=== PATIENT | female | born 2000 | race Caucasian/White ===

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

== ENCOUNTER 2020-01-04 14:52 | Emergency (ER) | payer OTHER, SELFPAY ==
[2020-01-04 14:53] VITALS: BP 128/86; PULSE 140; RESP 16; TEMP 36.7; O2SAT 98; BMI 23.6
--- NOTE | 2020-01-04 15:11 | ED.DCSUM_ITS ---
- ER Visit Summary Date of Service: 01/04/20 Chief Complaint: [Sore throat] History of Present Illness: The patient is a 19 F [presents to the emergency department with a sore throat that is worsened over the last 3 days. Patient had an illness that started about 3 weeks ago but then felt like she got better. Patient was tested for COVID-19 twice because 1 of her roommates tested positive. Patient was negative x2. Patient was seen at urgent care 3 days ago and had a positive mono test. Patient was negative for strep. She has been having decreased appetite and decreased p.o. intake because of the pain in her throat. She had a fever last night up to 101. She denies abdominal pain. She denies any cough. She denies loss of taste or smell. Patient has no medical history.] Physical Examination: [HEENT-PERRLA, EOMI. Cranial nerves II through XII grossly intact. TMs clear. Mucous membranes moist. Pharynx-patient has enlarged tonsils at +3. Patient has exudates bilaterally. No trismus on exam. Patient has posterior lymphadenopathy. Cardiovascular-regular rate and tachycardic. No murmurs auscultated. Lungs-clear to auscultation, chest wall stable without crepitus or subcu emphysema Abdomen-normoactive bowel sounds, soft, nontender, no rebound or rigidity, no peritoneal signs. No splenomegaly or hepatomegaly noted on exam. Extremities-intact ?4, normal range of motion, normal pulses, atraumatic] Test Results: [CBC with differential obtained showed a white count 12.6, hemoglobin 13, hematocrit 38, placed to 74. Chemistries unremarkable. Liver enzymes were elevated with a total bilirubin of 2.0, ALT 192 and AST of 91. Chest x-ray showed nothing acute.] Emergency Department Course and Treatment: [Line established. Patient was given 2 L normal saline fluid boluses. Patient was given Toradol 30 mg IV as well as Decadron 10 mg IV. Patient felt significantly improved after treatment.] Treatment Plan: [This point I suspect patient has mononucleosis clinically and via lab confirmation. I recommended avoiding any contact sports. I suspect the liver enzymes are elevated due to the mononucleosis. Patient will be given a prescription for few [place] for pain. She has viscous lidocaine at home as well for pain.] Disposition: [Discharged home in stable condition] Impression: [Mononucleosis Pharyngitis] This note was generated with [employer] dictation software. It may contain incorrect words, spelling, and punctuation that were not noted in review of the chart prior to signing ED Disposition - Plan for ED Patient: Referrals: Hernesto Pink DO [Primary Care Provider] -
[2020-01-04] MEDS: Ketorolac 30 MG/ML Syringe IV (15:36)
[2020-01-04] MEDS: 0.9% Normal Saline 1,000 ML 1000 ML IV ×2 (15:36→17:07)
[2020-01-04] MEDS: dexAMETHasone 10 MG/ML Vial IV (15:36)
[2020-01-04 15:39] LABS: Absolute Lymphocyte Count 6.21 X10^3/uL (0.83-4.51); Absolute Neutrophil Count 5.3 X10^3/uL (2.0-7.7); Basophil# 0.05 X10^3/uL; Basophil% 0.4 % (0-1); Eosinophil# 0.03 X10^3/uL; Eosinophils% 0.2 % (0-5); Hematocrit 37.9 % (37-47); Lymphocyte # 6.21 X10^3/ul (4.0); Lymphocyte % 49.2 % (19-41); Mean Corp Hgb Conc 34.3 g/dL (32-36); Mean Corpuscular Hgb 30.7 pg (27.0-32.0); Mean Corpuscular Volume 89.6 fL (81-99); Monocyte% 7.9 % (0-10); NRBC Flagged by Analyzer 0 % (0-5); Neutrophil # 5.29 X10^3/uL (2.7-7.7); POSITIVE DIFFERENTIAL YES; POSITIVE MORPHOLOGY YES; Platelet Count 274 K/mm3 (150-450); RBC Distribution Width CV 13.8 % (11.6-14.6); Red Blood Count 4.23 M/mm3 (4.2-5.4); White Blood Count 12.6 K/mm3 (4.4-11.0)
[2020-01-04] MEDS: Ondansetron 4 MG/2 ML Vial IV (15:45)
[2020-01-04 16:02] LABS: AST(SGOT) 91 U/L (15-37); Alanine Aminotransfer ALT/SGPT 192 U/L (13-56); Albumin, Serum 4.1 g/dL (3.2-5.0); Alkaline Phosphatase 93 U/L (45-117); Anion Gap 6 (5-15); BUN 11 mg/dL (7-18); BUN/Creat Ratio 14.3 RATIO (10-20); Calcium,Total 8.9 mg/dL (8.5-10.1); Chloride 104 mmol/L (98-107); Creatinine, Serum 0.77 mg/dL (0.55-1.02); EST Glomerular Filtration Rate 102 mL/min (>60); Est Glom Filt Rate - Afr Amer 123 mL/min (>60); Estimated Creatinine Clearance 92.94 ml/min; Globulin 4.1 g/dL (2.2-4.2); Glucose 89 mg/dL (74-106); Potassium 3.9 mmol/L (3.5-5.1); Protein, Total 8.2 g/dL (6.4-8.2); Sodium Level 138 mmol/L (136-145)
[2020-01-04 16:35] LABS: Differential Indicated SCAN CRITERIA MET
--- NOTE | 2020-01-04 16:35 | RAD_ITS ---
STUDY: X-RAY CHEST REASON FOR EXAM: Female, 19 years old. sore throat, diagnosed with mono recently TECHNIQUE: Single AP portable view of the chest. COMPARISON: None. FINDINGS: The lungs are clear and expanded. There is no demonstrated pleural abnormality. Normal size heart. Normal mediastinum and alireza. Normal visualized pulmonary arteries. Normal visualized aortic arch and descending thoracic aorta. Normal visualized thoracic spine. Normal visualized ribs, clavicles, and shoulders. There is no demonstrated abnormality of the visualized soft tissue structures of the upper abdomen. RAD/Chest 1 View (Portable) IMPRESSION: Normal x-ray examination of the chest. Electronically Signed: Samson Sheriff MD at 16:51 EDT Tel , Service support ,
[2020-01-04 16:37] LABS: Anisocytosis RARE; Macrocytosis RARE; Platelet Estimate ADEQUATE (ADEQ); Red Cell Morphology N CHROM NORMAL (NORM C&C)
--- NOTE | 2020-01-04 16:53 | DCINST.ED_ITS ---
ED Disposition - Plan for ED Patient: Instructions: ED Mononucleosis Prescriptions: Hydrocodone Bitart/Apap 5-325 [Havana 5MG-325MG] 1 tab PO Q4H PRN PRN 2 Days #10 tab PRN Reason: Pain Prescription Printed Referrals: Hernesto Pink DO [Primary Care Provider] - 3-5 Days Viral Stone MD [STAFF PHYSICIAN] -
[2020-01-04 18:03] VITALS: BP 122/87; PULSE 74; RESP 16; O2SAT 98
[2020-01-08 11:55] LABS: Pathologist Review Reviewed
== END 2020-01-04 18:05 | disposition home or self-care (01) ==
PROVIDERS: Emergency Provider Emergency Medicine; PCP Student in an Organized Health Care Education/Training Program
DX: B27.90 Infectious mononucleosis, unspecified without complication (principal); J02.9 Acute pharyngitis, unspecified
CPT/HCPCS: 71045; 80053; 85025; 96361; 96374; 96375; 99283; J7030; J2405

== ENCOUNTER → 2023-10-20 | Outpatient (CLI) | payer OTHER, SELFPAY ==
[2023-10-20 09:22] LABS: Absolute Neutrophil Count 2.8 X10^3/uL (2.0-7.7); Basophil# 0.02 X10^3/uL; Basophil% 0.3 % (0-1); Eosinophil# 0.11 X10^3/uL; Eosinophils% 1.7 % (0-5); Hematocrit 38.9 % (37-47); Hemoglobin 13.8 g/dL (12.0-15.0); Lymphocyte % 44.1 % (19-41); Mean Corp Hgb Conc 35.5 g/dL (32-36); Mean Corpuscular Hgb 30.4 pg (27.0-32.0); Mean Corpuscular Volume 85.7 fL (81-99); Mean Platelet Vol. 9.6 fl (6.2-12.0); Monocyte# 0.71 X10^3/uL; Monocyte% 10.8 % (0-10); NRBC Flagged by Analyzer 0 % (0-5); Neutrophil # 2.81 X10^3/uL (2.7-7.7); Neutrophil % 42.6 % (47-70); Platelet Count 272 K/mm3 (150-450); RBC Distribution Width CV 12.3 % (11.6-14.6); RBC Distribution Width SD 38.7 fl (35.1-43.9); Red Blood Count 4.54 M/mm3 (4.2-5.4); White Blood Count 6.6 K/mm3 (4.4-11.0)
[2023-10-20 09:56] LABS: AST(SGOT) 18 U/L (15-37); Alanine Aminotransfer ALT/SGPT 20 U/L (13-56); Albumin, Serum 3.4 g/dL (3.2-5.0); Alkaline Phosphatase 50 U/L (45-117); Anion Gap 6 (5-15); BUN 13 mg/dL (7-18); BUN/Creat Ratio 14.6 RATIO (10-20); Calcium,Total 8.6 mg/dL (8.5-10.1); Chloride 108 mmol/L (98-107); Cholesterol 153 mg/dL (200); Creatinine, Serum 0.89 mg/dL (0.55-1.02); EST Glomerular Filtration Rate 83 mL/min (>60); Est Glom Filt Rate - Afr Amer 101 mL/min (>60); Ferritin 32 ng/mL (8-252); Globulin 3.4 g/dL (2.2-4.2); Glucose 102 mg/dL (74-106); High Density Lipoprotein 34 mg/dL; Iron 78 ug/dL (50-170); Iron Binding Capacity,Total 311 ug/dL (250-450); Potassium 3.9 mmol/L (3.5-5.1); Protein, Total 6.8 g/dL (6.4-8.2); Sodium Level 140 mmol/L (136-145); T4 Free Direct 0.85 ng/dL (0.76-1.46); Thyroid Stim Hormone (TSH) 4.02 uIU/mL (0.358-3.74); Triglycerides 97 mg/dL; Very Low Density Lipoprotein 19 mg/dL (5-40)
== END | disposition home or self-care (01) ==
PROVIDERS: PCP Nurse Practitioner; Referring Provider Nurse Practitioner; Visit Provider Nurse Practitioner
DX: Z00.00 Encounter for general adult medical examination without abnormal findings (principal); Z86.2 Personal history of diseases of the blood and blood-forming organs and certain disorders involving the immune mechanism
CPT/HCPCS: 36415; 80053; 80061; 82728; 83540; 83550; 84439; 84443; 85025

== ENCOUNTER → 2024-05-22 | Outpatient (CLI) | payer OTHER, SELFPAY ==
[2024-05-22 10:25] LABS: Vitamin B12 889 pg/mL (211-911); Vitamin D,25 Hydroxy 34.9 ng/mL
[2024-05-23 08:08] LABS: Thyroid Peroxidase AB < 9 IU/mL (0-34)
[2024-05-23 12:08] LABS: ANTINUCLEAR ANTIBODIES DIRECT Negative (Negative); Anti-Centromere B Ab <0.2 AI (0.0-0.9); Anti-Chromatin <0.2 AI (0.0-0.9); Anti-Jo <0.2 AI (0.0-0.9); Anti-Scleroderma-70 AB <0.2 AI (0.0-0.9); Anti-dsDNA Ab <1 IU/mL (0-9); RNP Ab 0.6 AI (0.0-0.9); SJOGREN'S Anti-SS-A test < 0.2 AI (0.0-0.9); SJOGREN'S Anti-SS-B test < 0.2 AI (0.0-0.9); Smith Ab <0.2 AI (0.0-0.9)
== END | disposition home or self-care (01) ==
LOC: LAB 08:55
PROVIDERS: PCP Internal Medicine; Referring Provider Internal Medicine; Visit Provider Internal Medicine
DX: R53.83 Other fatigue (principal)
CPT/HCPCS: 36415; 82306; 82607; 84443; 86038; 86225; 86235; 86376